=== PATIENT | male | born 1965 | race American Indian/Alaskan Native ===

== ENCOUNTER 2020-06-03 11:13 | Day surgery (SDC) | payer MEDICARE ==
--- NOTE | 2020-06-03 12:58 | Anesthesia Consultation ---
Anesthesia Consult and Med Hx Date of service: 06/03/20 - Airway Anesthetic Teeth Evaluation: Good ROM Head & Neck: Adequate Mental/Hyoid Distance: Adequate Mallampati Class: Class II Intubation Access Assessment: Good - Pulmonary Exam CTA: Yes - Cardiac Exam Cardiac Exam: RRR - Pre-Operative Health Status ASA Pre-Surgery Classification: ASA2 Proposed Anesthetic Plan: General - Pulmonary Hx Smoking: No Hx Sleep Apnea: Yes (DX SLEEP APNEA WITH NO CPAP USE.) - Cardiovascular System Hx Hypertension: Yes (2002) - Central Nervous System Hx Psychiatric Problems: No - Endocrine Hx Non-Insulin Dependent Diabetes: Yes - Hematic Hx Anemia: No - Other Systems Hx Cancer: No
--- NOTE | 2020-06-03 12:58 | Anesthesia Day of Surgery ---
Anesthesia Day of Surgery - Day of Surgery Patient Examined: Yes Patient H&P Reviewed: Yes Patient is NPO: Yes Beta Blockers: Yes
[2020-06-03] MEDS ORDERED: ceFAZolin/STERILE WATER 2 GM/20 ML SYRINGE IV NR (13:00)
[2020-06-03] MEDS ORDERED: ONDANSETRON 4 MG/2 ML INJ IV PRN (13:03)
[2020-06-03] MEDS ORDERED: HYDROmorphone 1 MG/1 ML INJ IV PRN ×2 (13:03)
[2020-06-03] MEDS ORDERED: LACTATED RINGERS 1,000 ML IV SCH (13:15)
[2020-06-03] MEDS ORDERED: LIDOCAINE PF 100 MG/5 ML (CARDIAC SYRINGE) IV ONE (13:48)
[2020-06-03] MEDS ORDERED: ONDANSETRON 4 MG/2 ML INJ ONE (13:48)
[2020-06-03] MEDS ORDERED: PHENYLEPHRINE 10 MG/1 ML INJ SDV ONE ×2 (13:48→14:54)
[2020-06-03] MEDS ORDERED: fentaNYL 100 MCG/2 ML INJ ONE ×3 (13:49→14:56)
[2020-06-03] MEDS ORDERED: ePHEDrine SULFATE 50 MG/1 ML INJ ONE (13:49)
[2020-06-03] MEDS ORDERED: propofoL 200 MG/20 ML VIAL IV ONE ×2 (13:49→14:15)
[2020-06-03] MEDS ORDERED: dexAMETHasone 20 MG/5 ML VIAL ONE (14:00)
[2020-06-03] MEDS ORDERED: SUCCINYLCHOLINE CHLORIDE 200 MG/10 ML INJ MDV ONE (14:00)
[2020-06-03] MEDS ORDERED: WATER FOR IRRIG STERILE 2000 ML IR ONE (14:27)
[2020-06-03] MEDS ORDERED: IOHEXOL 300 MG/ML 50ML IV ONE (14:31)
--- NOTE | 2020-06-03 15:48 | Discharge Summary ---
Short Stay Discharge Plan Activity: other (no straing) Weight Bearing Status: Partial Weight Bearing Diet: low fat, low cholesterol, low salt, diabetic Durable Medical Equipment Needed Upon Discharge: other (home with catheter) Follow up with: PATRICIA CORDOVA [Other] - 7 Days FITO NESS MD [Staff Physician] - 7 Days
--- NOTE | 2020-06-03 15:49 | Post Operative Note ---
Date of procedure: 06/03/20 Pre-op diagnosis: urethral stricture Post-op diagnosis: same Findings: terrible 2 cm stricture Procedure: cysto dil dviu Anesthesia: GETA Surgeon: FITO NESS Estimated blood loss: minimal Pathology: none Condition: stable Disposition: PACU
--- NOTE | 2020-06-03 16:02 | Fluoroscopy Report ---
10 fluoroscopic images submitted Indication: Intraoperative localization Impression: 10 images of the pelvis were submitted for documentation purposes with radiology involve ment. Patient underwent cystography with ureteral dilatation. Please refer to the operative note fo r complete details. Fluoroscopic time: 2.8 minutes Signer Name: Abhishek Pinto MD Signed: 06/03/2020 3:57 PM Workstation Name: [id number]
[2020-06-03 16:10] VITALS: BP 142/85
--- NOTE | 2020-06-03 16:56 | Operative Report ---
PREOPERATIVE DIAGNOSIS: Severe urethral stricture. POSTOPERATIVE DIAGNOSIS: Severe urethral stricture. PROCEDURE: Cystoscopy, urethral dilatation, direct vision internal urethrotomy, insertion of Cherokee catheter. SURGEON: Dr. Alcantar. ANESTHESIA: General. FINDINGS: This is a gentleman who is quite ill, right above-knee amputation who has had a 10-11 procedures with the different urologists. We did a urethrogram that showed narrowing and he comes for treatment. DESCRIPTION OF PROCEDURE: The patient was brought to the operating room, placed on the operating table. Following induction of anesthesia, placed in lithotomy position with the left leg up, prepped and draped in usual sterile fashion. Cystourethroscopy showed a terrible stricture pinpoint. We placed a wire coiled in the bladder on fluoroscopy and opened this up dorsally. It was still so tense. It did not bleed at all. We used a 24 Balloon, NephroMax balloon and we were able to get in the bladder. We did not want to take out the wire. It was very traumatized at the stricture, but did not bleed at all. Once we were in the bladder, we got good drainage with a 20 Cherokee. The patient tolerated the procedure well and brought to recovery in stable condition. JOB# [id number] VANITA/SIDNEY
--- NOTE | 2020-06-03 17:41 | Post Anesthesia Evaluation ---
- Post Anesthesia Evaluation Patient Participated: Yes Airway Patent: Yes Stable Respiratory Function: Yes Nausea/Vomiting: No Temp > 96.8F: Yes Pain Manageable: Yes Adequeate Hydration: Yes Anesthesia Complications: No Block Receding Appropriately: Not Applicable Patient on Ventilator: No
== END 2020-06-03 11:14 | disposition home or self-care (01) ==
LOC: OR 11:13
PROVIDERS: ATTEND Urology
DX: N35.813 Other membranous urethral stricture, male (principal); E11.9 Type 2 diabetes mellitus without complications; E78.00 Pure hypercholesterolemia, unspecified; G47.30 Sleep apnea, unspecified; Z87.440 Personal history of urinary (tract) infections; Z79.899 Other long term (current) drug therapy; Z79.4 Long term (current) use of insulin; Z98.890 Other specified postprocedural states
CPT/HCPCS: 52281; 74430; 74485; 82962; A4217; C1726; C1769; J0330; J0690; J1100; J2001; J2370; J2405; J2704; J3010; J7120; Q9967